=== PATIENT | female | born 2000 | race Caucasian/White ===

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

== ENCOUNTER 2025-05-19 07:36 | Emergency (ER) | payer MEDICAID, SELFPAY ==
--- NOTE | ~2025-05-19 | CT_ITS ---
CLINICAL HISTORY: abd pain, r o colitis CT abdomen and pelvis with contrast Comparison: None provided Findings: CT abdomen: Lung bases are clear. No acute bony abnormality. Low-attenuation within the left lobe of the liver adjacent to the falciform ligament is consistent with focal fatty infiltration. No concerning hepatic mass lesions. Main portal vein is patent. Spleen, pancreas, gallbladder, and adrenal glands are unremarkable. Symmetric enhancement of the kidneys without mass, hydronephrosis, or nephrolithiasis. Mild fluid distention of the stomach. No dilated small bowel. No free fluid or free air. CT pelvis: Colon is primarily decompressed. Egom-[id number]-[id number] stool seen within the cecum and ascending colon. No significant colonic wall thickening or pericolonic inflammatory stranding is evident. No findings of appendicitis. No free fluid or free air. No adnexal lesions. IMPRESSION: No acute imaging explanation for the patient's symptoms.. This document has been electronically signed by: Olman Glover MD on 05/19/2025 12:56:23
[2025-05-19 07:39] VITALS: BP 127/82; PULSE 86; RESP 18; TEMP 36.6; O2SAT 100; BMI 27.7
--- NOTE | 2025-05-19 07:57 | ED.NAVMDI ---
HPI - Nausea/Vomiting/Diarrhea General Chief complaint: Nausea/Vomiting/Diarrhea Stated complaint: Gastritis, stomach pain Time Seen by Provider: 05/19/25 07:49 Source: patient and family Mode of arrival: ambulatory Limitations: no limitations History of Present Illness ED Provider: DR. Vazquez HPI Narrative: 24-year-old female history gastritis came in for evaluation upper abdominal pain for about week feels like burning sensation pain in the epigastric area, no nausea, no vomiting, no fever, chills, pain is on/ off for the past week. Never history of intra-abdominal surgery, passing flatus, last bowel movement was yesterday with normal, pain is localized to the epigastric area associated with nonstop nausea and vomiting. No sick contacts, no recent travel, no exposure to bad food pain No recent alcohol use, no recent drug abuse. No dysuria, no frequency urination, no hematuria, no vaginal discharge or vaginal bleeding. Related Data Previous Rx's ?Medication ?Instructions ?Recorded ondansetron 4 mg disintegrating 4 mg PO Q8H PRN nausea and 01/05/21 tablet vomiting #20 tabs omeprazole 40 mg capsule,delayed 40 mg PO DAILY #20 caps 05/19/25 release ondansetron 4 mg disintegrating 4 mg PO Q8H PRN nausea and 05/19/25 tablet vomiting #7 tabs Allergies Allergy/AdvReac Type Severity Reaction Status Date / Time No Known Allergies Allergy Verified 05/19/25 07:40 Review of Systems Review of Systems: All other systems are reviewed and are negative Constitutional: Reports as per HPI and Reports no additional constitutional complaints Eyes: Reports as per HPI and Reports no additional eye complaints Reports system reviewed and no additional complaints, except as documented Cardiovascular: Reports as per HPI and Reports no additional cardiovascular complaints Respiratory: Reports as per HPI and Reports no additional respiratory complaints Gastrointestinal: Reports as per HPI and Reports no additional gastrointestinal complaints Genitourinary: Reports no additional female genitourinary complaints Musculoskeletal: Reports no additional musculoskeletal complaints Skin/Breast: Reports system reviewed and no additional complaints, except as docu Psychiatric: Reports no additional psychiatric complaints Endocrine: Reports no additional endocrine complaints Hematologic/Lymphatic: Reports no additional hematologic/lymphatic complaints Allergic/Immunologic: Reports no additional allergic/immunologic complaints Reports system reviewed and no additional complaints, except as documented and Reports Abnormal speech present [facility] Past Medical History Medical History No known health problems Social History Social History Advance Directives: No Advance Directives Information Provided: Yes Do you have a plan to hurt others: No Plan Physical Exam Vital Signs: Vital Signs: Last Vital Signs Temp 97.9 F 05/19/25 07:39 Pulse 86 05/19/25 07:39 Resp 18 05/19/25 07:39 BP 127/82 05/19/25 07:39 Pulse Ox 100 05/19/25 07:39 O2 Del Method Room Air 05/19/25 07:39 BMI result Body Mass Index 27.7 Vital signs have been reviewed and appear to be correct. Blood pressure elevated. Heart rate normal. Respiratory rate normal. Temperature normal. Oxygen saturation normal. Appearance: Alert. Oriented X3. No acute distress. Head: Normal external exam. Normocephalic. Atraumatic. No Flaherty signs noted. No raccoon eyes noted Eyes: PERRLA. EOMI. Conjunctiva and sclera normal. Eyelids normal. ENT: TM's Normal. Pharynx normal. Uvula midline. Moist mucous membranes. No trismus noted. No drooling noted. No muffled voice noted. Neck: Normal inspection. Neck supple. FROM. No adenopathy. Thyroid Normal. No meningeal signs. No neck mass noted. CVS: Normal heart rate and rhythm. Heart sound normal. No murmurs noted. Pulses normal throughout. Respiratory: No respiratory distress. Painless inspiration. Breath sounds normal. No wheezes/rales/rhonchi noted. Chest nontender. No accessory muscle usage noted or decreased air movement noted. Abdomen: Soft and nontender. Bowel sounds normal in all 4 quadrants. No distention noted. No organomegaly noted. No visible injury noted. Back: No CVA tenderness. Full range of motion noted. Skin: Skin warm and dry. Normal skin color. Normal skin turgor. No rashes/lesions/lacerations noted. Extremities: No lower extremity edema. Extremities exhibit normal range of motion. Extremities nontender. Neuro: Oriented X 3. Cranial nerve exam: II-XII are grossly intact No motor deficit. No sensory deficit. Reflexes normal. Course Reevaluation(s) Reevaluation #1: Chronic cyclic vomiting syndrome likely secondary to smoking marijuana, pending CT abdomen pelvis, patient does not want to wait in signed against medical advice. Patient understood that she is signing against medical advice and carrying risk of missing a diagnosis, worsening of symptoms, also is a possibility of signing against medical advice. Time: 10:32 Medications Administered Discontinued Medications Generic Name Dose Route Start Last Admin Trade Name Babita PRN Reason Stop Dose Admin Famotidine 20 mg 05/19/25 07:54 05/19/25 08:32 Famotidine/Pf 20 Mg/2 Ml Vial IVPUSH 05/19/25 07:55 20 mg ONCE ONE Administration Iohexol 100 ml 05/19/25 09:59 05/19/25 10:00 Iohexol 350 Mg/Ml 100 Ml Infus..Btl IV 05/19/25 10:00 85 ml ONCE ONE Administration Morphine Sulfate 2 mg 05/19/25 09:38 05/19/25 10:22 Morphine Sulfate 2 Mg/Ml Cartridge IVPUSH 05/19/25 09:39 2 mg ONCE ONE Administration Protocol Ondansetron HCl 4 mg 05/19/25 07:54 05/19/25 08:32 Ondansetron Hcl 4 Mg/2 Ml Vial IVPUSH 05/19/25 07:55 4 mg ONCE ONE Administration Medical Decision Making Differential Diagnosis Differential Diagnoses: The differential diagnosis associated with the presentation includes (Acute appendicitis, gastritis, pancreatitis, diverticulitis, colitis, gastroenteritis, electrolyte derangement, severe anemia) Admission/Observation Consideration of admission/observation: Escalation of care including admission/observation considered Lab Data MDM Lab Attestation statement: I reviewed the patient's lab results. 05/19/25 08:15 05/19/25 08:15 Labs: Lab Results 05/19/25 Range/Units 08:15 WBC 9.1 (4.8-10.8) X10*3/uL RBC 4.03 L (4.20-5.50) X10*6/uL Hgb 12.5 (12.0-16.0) g/dl Hct 35.5 L (37.0-47.0) % MCV 88.1 (80.0-98.0) fL MCH 31.0 (27.0-33.0) pg MCHC 35.2 H (31.0-35.0) g/dl RDW 11.9 (11.0-16.0) % Plt Count 296 (160-400) X10*3/uL MPV 9.5 (9.4-12.3) fL Immature Gran % (Auto) 0.3 (0.0-0.4) % Neut % (Auto) 80.8 H (45-73) % Lymph % (Auto) 11.1 L (20-40) % [place] % (Auto) 6.6 (2-11) % Eos % (Auto) 0.3 (0-4) % Baso % (Auto) 0.9 (0-2) % Lymph # (Auto) 1.0 L (1.2-4.9) X10*3/uL [place] # (Auto) 0.6 (0.1-1.2) X10*3/uL Eos # (Auto) 0.0 (0.0-0.4) X10*3/uL Baso # (Auto) 0.1 (0.0-0.2) X10*3/uL Abs Immat Gran (auto) 0.03 (0.00-0.03) X10*3/uL Absolute Neuts (auto) 7.4 (2.0-8.3) x10*3/uL Absolute Nucleated RBC 0.000 (0.0-0.012) X10*3/uL Nucleated RBC % (auto) 0.0 (0.0-0.2) /100WBC Sodium 139 (135-145) mmol/L Potassium 3.3 (3.3-5.1) mmol/L Chloride 105 (96-108) mmol/L Carbon Dioxide 22 (22-29) mmol/L Anion Gap 15 (12-20) BUN 13 (9-16) mg/dL Creatinine 0.79 (0.5-1.4) mg/dL Estim Creat Clear Calc 109.6 Estimated GFR > 60 Random Glucose 118 H (60-115) mg/dL Calcium 9.4 (8.4-10.2) mg/dL Total Bilirubin 0.5 (0.0-1.0) mg/dL AST 17 (5-31) U/L ALT 8 (0-31) U/L Alkaline Phosphatase 49 (39-117) U/L Total Protein 7.6 (6.5-8.0) g/dL Albumin 4.7 (3.5-5.0) g/dL Lipase 15 (8-78) U/L Urine Color Yellow Urine Appearance Cloudy Urine pH 7.0 (5.0-9.0) Ur Specific [place] >= 1.030 H (1.005-1.025) Urine Protein Trace (Neg-Trace) mg/dL Urine Glucose (UA) Negative (Negative) mg/dL Urine Ketones 40 (Negative) mg/dL Urine Blood Small (1+) H (Negative) Urine Nitrite Negative (Negative) Ur Leukocyte Esterase Trace H (Negative) Urine RBC 6-10 H (0-2) /HPF Urine WBC 0-5 (0-5) /HPF Ur Squamous Epith Cells 6-10 (0-2) /HPF Urine Bacteria Trace (None Seen) Hyaline Casts 0-2 (0-2) /LPF Urine Test NEGATIVE (NEGATIVE) Independent Interpretation I performed an independent interpretation of an: CT Scan Discharge Plan Discharge Clinical Impression: Intractable vomiting Patient Disposition: Left Against Medical Advice Instructions: Acute Abdominal Pain (ED) Prescriptions: New ondansetron 4 mg tablet,disintegrating 4 mg PO Q8H PRN (Reason: nausea and vomiting) Qty: 7 0RF omeprazole 40 mg capsule,delayed release(DR/EC) 40 mg PO DAILY Qty: 20 0RF No Action ondansetron 4 mg tablet,disintegrating 4 mg PO Q8H PRN (Reason: nausea and vomiting) Qty: 20 0RF Referrals: [facility] [Primary Care Provider, Medical] Stand Alone Forms: Against Medical Advice Print Language: Telugu
[2025-05-19 08:20] LABS: MANUAL DIFF FLAG NO
[2025-05-19 08:22] LABS: Hematocrit 35.5 % (37.0-47.0); Hemoglobin 12.5 g/dl (12.0-16.0); Imm Gran Abs Auto 0.03 X10*3/uL (0.00-0.03); Imm Gran Pct Auto 0.3 % (0.0-0.4); Lymphocytes Absolute Auto 1.0 X10*3/uL (1.2-4.9); Mean Corpuscular HGB Conc 35.2 g/dl (31.0-35.0); Mean Corpuscular Hemoglobin 31.0 pg (27.0-33.0); Mean Corpuscular Volume 88.1 fL (80.0-98.0); NRBC Abs Auto 0.000 X10*3/uL (0.0-0.012); NRBC Pct Auto 0.0 /100WBC (0.0-0.2); Platelet Count 296 X10*3/uL (160-400); Red Blood Count 4.03 X10*6/uL (4.20-5.50); White Blood Count 9.1 X10*3/uL (4.8-10.8)
[2025-05-19 08:23] LABS: Appearance Urine Cloudy; Glucose Urine UA Negative (Negative); PH 7.0 (5.0-9.0); Specific Gravity - Urine >= 1.030 (1.005-1.025); UMIC TRIGGER UACC YES
[2025-05-19 08:24] LABS: UPreg QC Valid YES
--- OUTSIDE RECORDS SUMMARY | 2025-05-19 08:29 | XMS_ITS | Encounter Summary ---
Author Organization [employer] Address [address] [place] [address] [address] [place] [address] Care Team Providers Care Car Body Mechanic Name Role Phone Lana Viveros Primary Care Provider [phone] Kera Mtz NP Primary Care Provider [phone] Reason for Visit * Reason Onset Date Comments Appointment Request 09/02/2023 Encounter Details Date Type Department Care Team ([facility] Contact Info) Description 09/02/[address] [facility] [address], [place] [id number] Lana Viveros FNP [address] [place] [address], [place] [phone] Appointment Request Social History Tobacco Use Types Packs/Day Years Used Date Smoking Tobacco: Never Assessed Comments Unknown Sex and Gender Information Value Date Recorded Sex Assigned at Female 06/14/2022 10:17 AM EDT Legal Sex Female 10:17 AM EDT Gender Identity Female 06/14/2022 10:17 AM EDT Sexual Orientation Straight 06/14/2022 10 :17 AM EDT documented as of this encounter Miscellaneous Notes * Telephone Encounter - Poonam Oseguera - 09/02/2023 11:49 AM EST Tc from pt requesting to schedule an appointment to discuss control. Please contact pt at [phone] documented in this encounter Plan of Treatment Not on file documented as of this encounter Visit Diagnoses Not on filedocumented in this encounter Care Teams Car Body Mechanic Relationship Specialty Start Date End Date Lana Viveros FNP [address] [place] [address] [place] [address] PCP - General Family Medicine 01/28/22 09/18/23 Kera Mtz NP [address] [place] [address] PCP - General Family Medicine 09/19/23 10/21/24 documented as of this encounter
--- OUTSIDE RECORDS SUMMARY | 2025-05-19 08:30 | XMS_ITS | Clinical Summary ---
Demographics Address [address] [place] [address] [address] [place] [address] Work Phone Mobile Phone Preferred Language en Marital Status Single Islam Affiliation Unknown Race White Ethnic Group Unknown Author Organization [employer] Address [address] [facility] [address] [place] [address] Care Team Providers Care Tower Operator Name Role Phone Unavailable Primary Care Provider Unavailabl e Social History Tobacco Use Types Packs/Day Years Used Date Smoking Tobacco: Never Assessed Comments Unknown Sex and Gender Information Value Date Recorded Sex Assigned at Female 06/14/2022 10:17 AM EDT Legal Sex Female 10:17 AM EDT Gender Identity Female 06/14/2022 10:17 AM EDT Sexual Orientation Straight 06/14/2022 10 :17 AM EDT Last Filed Vital Signs Vital Sign Reading Time Taken Comments Blood Pressure 112/64 09/24/2021 12:02 AM EST Pulse 84 09/24/2021 12:02 AM EST Temperature - - Respiratory Rate - - Oxygen Saturation - - Inhaled Oxygen Concentration - - Weight 70.1 kg (154 lb 9.6 oz) 09/24/2021 12:02 AM EST Height 162.6 cm (5' 4 ) 09/24/2021 12:02 AM EST Body Mass Index 26.54 09/24/2021 12:02 AM EST Plan of Treatment Health Maintenance Due Date Last Done Comments Chlamydia and Gonorrhea Screening 2002 Depression Screening 2002 HIV Screening 2002 Disability Screening 2002 Alcohol/Substance Use Screening 2014 Tobacco Screening 2014 Family Planning (PISQ) 2017 Meningococcal B Vaccine (1 of 2 - Standard) 2018 Hepatitis C Screening 2020 Pap Smear 2023 DTaP/Tdap/Td Vaccines (6 - Td or Tdap) 03/11/2024 03/11/2014, 10/28/2006, 01/28/2003, Additional history exists COVID-19 Vaccine ( season) 2025 02/24/2021, 02/03/2021 Influenza Vaccine (#1) 2025 9, 06/19/2018, 06/16/2017, Additional history exists Zoster Vaccines (1 of 2) 2052 RSV Patients and Patients Aged 60 years or older (1 - 1-dose 75+ series) 2077 Pneumococcal Vaccine: Pediatrics (0 to 5 Years) and At-Risk Patients (6 to 49) Years Aged Out 01/28/2003, 2002, 2002 No longer eligible based on patient's age to complete this topic Hepatitis B Vaccines Completed 05/03/2003, 2002, 2002 HIB Vaccines Completed 12/26/2003, 01/13, 2002, Additional history exists IPV Vaccines Completed 10/28/2006, 04/15, 2002, Additional history exists Hepatitis A Vaccines Completed 05/26/2015, 03/19/20 13 HPV Vaccines Completed 12/30/2015, 08/15, 05/26/2015 Meningococcal Vaccine Completed 06/15/2019, 014 RSV under 20 months Aged Out No longe r eligible based on patient's age to complete this topic Rotavirus Vaccines Aged Out No longer eligible based on patient's age to complete this topic
[2025-05-19 08:36] LABS: Alanine Aminotransferase 8 U/L (0-31); Albumin Level 4.7 g/dL (3.5-5.0); Alkaline Phosphatase 49 U/L (39-117); Anion Gap 15 (12-20); Aspartate Amino Transferase 17 U/L (5-31); Blood Urea Nitrogen 13 mg/dL (9-16); Calcium 9.4 mg/dL (8.4-10.2); Carbon Dioxide 22 mmol/L (22-29); Chloride 105 mmol/L (96-108); Creatinine Clr Calc Pharmacy 109.6; Estimated Glomerular Filt Rate > 60; Lipase 15 U/L (8-78); Potassium 3.3 mmol/L (3.3-5.1); Sodium 139 mmol/L (135-145); Total Protein 7.6 g/dL (6.5-8.0)
--- NOTE | 2025-05-19 09:27 | PC.NURSE ---
pt reports continued nausea s/p previous medication administration despite no taking/eating any additional ice chips. The pt reports that she was previously prescribed zofran for home with no improvement and was later prescribed a different medication (med type/name unknown) by her PCP that did help. This RN attempted to review the chart and previous medications filled without success. MD Vazquez made aware and new medications requested.
[2025-05-19] MEDS: iohexoL 350 MG/ML 100 ML INFUS..BTL IV (10:00)
--- NOTE | 2025-05-19 10:35 | PC.NURSE ---
pt expressing frustration with continued nausea and amount of time that she has been feeling this way. RN to bedside to explain new morphine orders after she returned from CT at which point she stated Yo chanda just go home for all this . The pt is requesting to leave prior to disposition being achieved at this time as she is still awaiting the results of her CT. This RN attempted to relay the significance of the CT imaging to ensure the nausea/pain is r/t gastritis vs something else but she refused to here this. The pt remains awake and alert, visibly uncomfortable/upset and without acute distress noted. MD Vazquez was made aware and [facility] plan is for DC AMA with prescriptions per the pt's request. She is aware of need to follow up with PCP and potentially seek a GI consult/referral for management of gastritis. Mom remains at bedside, RN attempted to offer to send registration over to get her set up with the patient portal but she declined as she did not want to be bothered with that at this time. She was medicated per MAR with IVP Morphine, declined/refused the maalox d/t continued nausea. requesting medication other than zofran for home as she reports it did not work today and has not worked in the past; MD lynn
[2025-05-19 11:07] VITALS: BP 120/68; PULSE 78; RESP 18; TEMP 36.6; O2SAT 99
== END 2025-05-19 10:54 | disposition left against medical advice (07) ==
PROVIDERS: Emergency Provider Emergency Medicine
DX: R11.10 Vomiting, unspecified (principal); Z53.21 Procedure and treatment not carried out due to patient leaving prior to being seen by health care provider
CPT/HCPCS: 36415; 74177; 80053; 81001; 81025; 83690; 85025; 96374; 96375; 99284; 99285; J1308; J2270; J2405; Q9967

== ENCOUNTER → 2025-05-19 09:39 | Outpatient (BNV) | payer MEDICAID, SELFPAY | PROVIDERS: Emergency Provider Emergency Medicine; Visit Provider Radiology Diagnostic Radiology | DX: R10.9 Unspecified abdominal pain (principal) | CPT/HCPCS: 74177 ==